=== PATIENT | male | born 1980 | race Two or more races ===

== ENCOUNTER 2024-11-22 06:46 | Emergency (ER) | payer SELFPAY ==
[~2024-11-22] VITALS: Ht 172.7 cm; Wt 59.1 kg
[2024-11-22 06:59] VITALS: BP 102/62; PULSE 115; RESP 18; TEMP 98.5; O2SAT 99
[2024-11-22 07:35] LABS: COVID AG,FIA SOURCE NASAL SWAB
[2024-11-22 08:31] LABS: RAPID GROUP A STREP NEGATIVE (NEGATIVE)
[2024-11-22 08:53] LABS: SARS-COV2 (COVID) ANTIGEN,FIA Negative (Negative)
[2024-11-22 08:54] LABS: INFLUENZA TYPE A NEGATIVE FOR TYPE A (NEGATIVE); INFLUENZA TYPE B NEGATIVE FOR TYPE B (NEGATIVE)
== END 2024-11-22 11:17 | disposition left against medical advice (07) ==
LOC: EMS 06:50
DX: J02.9 Acute pharyngitis, unspecified (principal); Z20.822 Contact with and (suspected) exposure to COVID-19; Z53.21 Procedure and treatment not carried out due to patient leaving prior to being seen by health care provider
CPT/HCPCS: 87430; 87804